=== PATIENT | male | born 1955 | race Caucasian/White ===

== ENCOUNTER → 2020-06-24 | Outpatient (CLI) | payer MEDICARE | LOC: HEART 5 09:57 | DX: J44.9 Chronic obstructive pulmonary disease, unspecified (principal); R06.02 Shortness of breath; R91.8 Other nonspecific abnormal finding of lung field; I51.7 Cardiomegaly; Z87.81 Personal history of (healed) traumatic fracture | CPT/HCPCS: 71046; 94010 ==

== ENCOUNTER → 2020-07-08 | Outpatient (CLI) | payer MEDICARE | LOC: KOH-I 08:58 | DX: J84.112 Idiopathic pulmonary fibrosis (principal); R91.1 Solitary pulmonary nodule | CPT/HCPCS: 71250 ==

== ENCOUNTER → 2020-07-08 | Outpatient (CLI) | payer MEDICARE | LOC: RT 10:29 | DX: R09.02 Hypoxemia (principal) | CPT/HCPCS: 36600; 82803 ==